=== PATIENT | female | born 1990 | race Caucasian/White ===

== ENCOUNTER 2018-10-26 10:53 | Outpatient (CLI) | payer OTHER ==
--- NOTE | 2018-10-26 11:58 | RAD ---
LUMBAR SPINE 3 VIEWS: Date: 10/26/18 HISTORY: Inflammatory polyarthropathy. FINDINGS: Three views of the lumbar spine demonstrate disc spaces to be adequately preserved. No acute fracture or dislocation. No significant malalignment. No significant facet arthrosis. IMPRESSION: Unremarkable lumbar spine 3 views. POS: [facility]
== END 2018-10-26 10:54 | disposition home or self-care (01) ==
LOC: RAD 10:53
PROVIDERS: ATTEND Internal Medicine Rheumatology
DX: M06.4 Inflammatory polyarthropathy (principal)
CPT/HCPCS: 72100